=== PATIENT | female | born 1950 | race Caucasian/White ===

== ENCOUNTER 2019-11-15 07:00 | Day surgery (SDC) | payer OTHER | END 2019-11-15 15:00 | disposition home or self-care (01) | LOC: AMB-ENDOS 07:00 | PROVIDERS: ATTEND Surgery | DX: K62.89 Other specified diseases of anus and rectum (principal); K64.8 Other hemorrhoids; Z20.828 Contact with and (suspected) exposure to other viral communicable diseases ==

== ENCOUNTER 2019-12-02 14:54 | Inpatient (IN) | payer OTHER ==
[~2019-12-02] VITALS: Ht 142.2 cm; Wt 50.8 kg
[2019-12-11] MEDS ORDERED: SYNTHROID75 MCG PO (13:16)
[2019-12-11] MEDS ORDERED: NORVASC5 MG PO (13:17)
[2019-12-11] MEDS ORDERED: ATORVASTATIN CA20 MG PO (13:17)
[2019-12-11] MEDS ORDERED: GLIPIZIDE XL5 MG PO (13:18)
[2019-12-11] MEDS ORDERED: VASOFLEX SOFTG1 EACH PO (13:18)
[2019-12-22] MEDS ORDERED: TRAMADOL HCL50 MG PO (09:38)
== END 2019-12-22 13:57 | disposition home or self-care (01) | DRG 330 ==
LOC: SURH 12-18 10:30 → O/R 12-18 10:30 → RECOVERY 12-18 11:30 → SURH 12-18 21:11
PROVIDERS: ADMIT Surgery; ATTEND Surgery
PROC: 07TC4ZZ Resection of Pelvis Lymphatic, Percutaneous Endoscopic Approach (ICD-10-PCS; 2019-12-18)
PROC: 0D1N4Z4 Bypass Sigmoid Colon to Cutaneous, Percutaneous Endoscopic Approach (ICD-10-PCS; 2019-12-18)
PROC: 0DTN4ZZ Resection of Sigmoid Colon, Percutaneous Endoscopic Approach (ICD-10-PCS; principal; 2019-12-18 12:30)
DX: C20 Malignant neoplasm of rectum (principal); C77.5 Secondary and unspecified malignant neoplasm of intrapelvic lymph nodes; K63.89 Other specified diseases of intestine; E03.8 Other specified hypothyroidism; I11.9 Hypertensive heart disease without heart failure; E11.65 Type 2 diabetes mellitus with hyperglycemia; Z79.4 Long term (current) use of insulin

== ENCOUNTER 2019-12-02 15:12 | Outpatient (CLI) | payer OTHER | END 2019-12-02 15:18 | disposition home or self-care (01) | LOC: RAD 15:12 | PROVIDERS: ATTEND Surgery | DX: C20 Malignant neoplasm of rectum (principal); R59.0 Localized enlarged lymph nodes; R19.5 Other fecal abnormalities ==

== ENCOUNTER 2021-01-04 06:12 | Day surgery (SDC) | payer OTHER ==
[~2021-01-04 06:12] MED LIST: ATORVASTATIN CA20 MG PO; GLIPIZIDE XL5 MG PO; NORVASC5 MG PO; SYNTHROID75 MCG PO; TRAMADOL HCL50 MG PO; VASOFLEX SOFTG1 EACH PO
== END 2021-01-04 09:55 | disposition home or self-care (01) ==
LOC: AMB-ENDOS 06:12
PROVIDERS: ATTEND Surgery
DX: K62.89 Other specified diseases of anus and rectum (principal); Z20.822 Contact with and (suspected) exposure to COVID-19